=== PATIENT | male | born 1960 ===

== ENCOUNTER 2017-04-19 17:38 | Inpatient (IN) | payer OTHER ==
[2017-04-19 18:05] LABS: BASO % 0.3 % (0-2); EOS % 0.4 % (0-7); HCT-HEMATOCRIT 41.2 % (36.0-53.5); HGB-HEMOGLOBIN 14.1 gm/dl (13.5-17.0); IMMATURE GRANULOCYTES ABSOLUTE 0.03 tho/cmm (0-0.03); IMMATURE GRANULOCYTES PERCENT 0.4 % (0-0.3); KETONE-BETA (WHOLE BLOOD) 0.2 mmol/L (0.0-0.6); LYMPH % 36.2 % (20-45); LYMPH ABSOLUTE COUNT 2.4 tho/cmm (0.8-4.5); MCH (MEAN CORPUSCULAR HGB) 30.9 pg (28.0-32.0); MCHC MEAN CORPUSCULAR HGB CONC 34.2 % (32.0-36.0); MCV (MEAN CELL VOLUME) 90.4 fl (82.0-96.0); MEAN PLATELET VOLUME 11.6 cmc (9.4-12.4); MONO % 9.9 % (0-12); MONOCYTE ABSOLUTE COUNT 0.7 tho/cmm (0.0-1.2); NEUTROPHIL ABSOLUTE COUNT 3.5 tho/cmm (1.6-8.0); NEUTROPHIL-AUTOMATED 3.5 tho/cmm (1.6-8.0); NEUTROPHILS % 52.8 % (40-80); PLATELET COUNT 203 tho/cmm (150-450); RED BLOOD COUNT 4.56 mil/cmm (4.40-5.70); RED CELL DISTRIBUTION WIDTH 13.1 % (12.4-16.4); WHITE BLOOD COUNT 6.7 tho/cmm (4.0-10.0)
[2017-04-19 18:08] LABS: PROTHROMBIN TIME 11.1 SECONDS (9.0-13.6)
[2017-04-19 18:13] LABS: ABG CO2 ARTERIAL 20 mmol/L (21-27); ARTERIAL BLD GAS O2 SATURATION 97 % (95-98); ARTERIAL BLOOD GAS PCO2 27 mmHg (32-45); ARTERIAL PO2 122 mmHg (70-100); BICARBONATE 19 mmol/L (21-28); BLOOD GAS BASE EXCESS -3 mM/L (-/+3); PH 7.47 Units (7.35-7.45)
[2017-04-19 18:26] LABS: ALB/GLOB RATIO 1.2 (0.8-2.0); ALBUMIN 3.6 g/dl (3.5-5.0); ALKALINE PHOSPHATASE 140 U/L (33-138); ALT/SGPT 23 U/L (12-78); ANION GAP 17 mmol/L (0-20); AST/SGOT 26 U/L (10-40); BILIRUBIN,TOTAL 0.5 mg/dl (0.0-1.5); BLOOD UREA NITROGEN 23 mg/dl (6-24); CALCIUM 8.8 mg/dl (8.5-10.5); CARBON DIOXIDE-VENOUS 19 mmol/L (22-32); CHLORIDE 107 mmol/l (96-110); GLUCOSE 309 mg/dL (70-110); MAGNESIUM 1.7 mg/dl (1.8-2.6); POTASSIUM 4.4 mmol/L (3.7-5.1); SODIUM 139 mmol/L (135-145); eGFR VALUE FOR BLACK 66 mL/Min
[2017-04-19] MEDS ORDERED: BENTYL10 M1 PO (19:36)
[2017-04-19] MEDS ORDERED: HYDROCHLOROTHIA25 M1 PO (19:36)
[2017-04-19] MEDS ORDERED: VITAMIN B-121000 MC1 PO (19:37)
[2017-04-19] MEDS ORDERED: OXCARBAZEPINE150 M1 PO (19:37)
[2017-04-19] MEDS ORDERED: LACTULOSE PO (19:42)
[2017-04-19] MEDS ORDERED: MAGNESIUM OXID420 M1 PO (19:43)
[2017-04-19] MEDS ORDERED: HYDRALAZINE HCL50 M1 PO (19:43)
[2017-04-19] MEDS ORDERED: NORVASC10 M2 PO (19:43)
[2017-04-19] MEDS ORDERED: METOPROLOL TAR100 M2 PO (19:44)
[2017-04-19] MEDS ORDERED: HYDROCORTISONE TOP (19:44)
[2017-04-19] MEDS ORDERED: LISINOPRIL40 M1 PO (19:45)
[2017-04-19] MEDS ORDERED: VALPROIC ACID250 M3 PO (19:45)
[2017-04-19] MEDS ORDERED: ZOCOR20 M1 PO (19:46)
[2017-04-19] MEDS ORDERED: PENICILLIN V PO (19:47)
[2017-04-19] MEDS ORDERED: ALBUTEROL INH (19:47)
[2017-04-19] MEDS ORDERED: CLONIDINE HCL0.1 M2 PO (19:48)
[2017-04-19] MEDS ORDERED: MORPHINE SU15 MG/TAB PO (19:49)
[2017-04-19] MEDS ORDERED: ROXICODONE5 M2 PO (19:49)
[2017-04-19] MEDS ORDERED: ARTIFICIAL TEAR1512 EACH EYE (19:49)
[2017-04-20 02:04] LABS: CKMB 1.2 ng/ml (<3.6)
[2017-04-20 02:09] LABS: CREATINE PHOSPHOKINASE (CPK) 82 U/L (35-232)
[2017-04-20 04:15] LABS: URINE LEUKOCYTE ESTERASE NEGATIVE (NEG); URINE PH 6.5 (5.0-8.0); URINE PROTEIN SMALL (NEG)
[2017-04-20 04:24] LABS: URINE APPEARANCE CLEAR; URINE BILIRUBIN NEGATIVE (NEG); URINE BLOOD NEGATIVE (NEG); URINE COLOR YELLOW; URINE GLUCOSE (UA) SMALL (NEG); URINE KETONE NEGATIVE (NEG); URINE NITRITE NEGATIVE (NEG)
[2017-04-20 04:31] LABS: URINE EPITHELIAL CELLS RARE /[HPF] (0-10); URINE RBC 0 /[HPF] (0-5); URINE WBC RARE /[HPF] (0-5)
[2017-04-20 07:24] LABS: ALB/GLOB RATIO 0.9 (0.8-2.0); ALBUMIN 2.9 g/dl (3.5-5.0); ALKALINE PHOSPHATASE 110 U/L (33-138); ALT/SGPT 18 U/L (12-78); ANION GAP 13 mmol/L (0-20); AST/SGOT 19 U/L (10-40); BILIRUBIN,TOTAL 0.4 mg/dl (0.0-1.5); BLOOD UREA NITROGEN 23 mg/dl (6-24); CALCIUM 8.5 mg/dl (8.5-10.5); CARBON DIOXIDE-VENOUS 24 mmol/L (22-32); CHLORIDE 112 mmol/l (96-110); CHOLESTEROL 88 mg/dl (120-200); CREATININE 0.94 mg/dl (0.60-1.30); HDL CHOLESTEROL 51 mg/dl (40-60); LDL CHOLESTEROL 27 mg/dl (0-99); MAGNESIUM 1.9 mg/dl (1.8-2.6); POTASSIUM 4.3 mmol/L (3.7-5.1); SODIUM 145 mmol/L (135-145); TRIGLYCERIDES 51 mg/dl (<149); VLDL 10 mg/dl (0-30); eGFR VALUE FOR BLACK >90 mL/Min
[2017-04-20 07:36] LABS: GLUCOSE 106 mg/dL (70-110)
[2017-04-20] MEDS ORDERED: ASPIRIN325 M3 PO (19:19)
[2017-04-20] MEDS ORDERED: NITROSTAT0.4 M1 SL (19:37)
== END 2017-04-20 19:50 | DRG 313 ==
LOC: EDMED 17:38 → EMR2 04-20 01:10 → 5EB 04-20 07:40
PROVIDERS: Emergency Medicine; Internal Medicine; ADMIT Hospitalist
DX: R07.9 Chest pain, unspecified (principal); I25.10 Atherosclerotic heart disease of native coronary artery without angina pectoris; I50.9 Heart failure, unspecified; I10 Essential (primary) hypertension; R47.81 Slurred speech; E78.5 Hyperlipidemia, unspecified; E83.42 Hypomagnesemia; Z82.49 Family history of ischemic heart disease and other diseases of the circulatory system; Z87.891 Personal history of nicotine dependence; Z86.14 Personal history of Methicillin resistant Staphylococcus aureus infection
CPT/HCPCS: A9577; C8929; J1630; J1650; J2060; J3475; J7030; Q9967